=== PATIENT | male | born 1935 | race Caucasian/White ===

== ENCOUNTER 2019-08-07 13:11 | Inpatient (IN) | payer MEDICARE ==
[2019-08-07] MEDS ORDERED: Sodium Chloride 0.9% 10 ML Syringe FLUSH PRN (13:33)
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
[2019-08-07] MEDS: Hydrochlorothiazide 25 MG Tab PO SCH (15:10)
[2019-08-07] MEDS: Rivaroxaban 15 MG Tab PO SCH (17:30)
[2019-08-07] MEDS ORDERED: NIFEdipine 10 MG Cap PO SCH (20:00)
[2019-08-07] MEDS: cloNIDine 0.1 MG Tab PO SCH (20:32)
[2019-08-07] MEDS: Metoprolol Succinate 50 MG Tab.ER PO SCH (20:33)
[2019-08-07] MEDS: Latanoprost 0.005% Ophth Soln 2.5 ML Bottle EYEBOTH SCH (20:33)
[2019-08-07] MEDS: Simvastatin 20 MG Tab PO SCH (20:33)
[2019-08-07] MEDS: NIFEdipine 30 MG Tab.ER PO SCH (20:34)
[2019-08-07] MEDS ORDERED: Non-Formulary Medication 1 Each (Simvastatin [Zocor] 20 MG) PO SCH (21:00)
[2019-08-08] MEDS: Lisinopril 20 MG Tab PO SCH (08:49)
[2019-08-08] MEDS: NIFEdipine 30 MG Tab.ER PO SCH ×2 (08:50→19:55)
[2019-08-08] MEDS: Aspirin 81 MG Tab.Chew PO SCH (08:51)
[2019-08-08] MEDS: cloNIDine 0.1 MG Tab PO SCH ×2 (08:51→20:54)
[2019-08-08] MEDS: Metoprolol Succinate 50 MG Tab.ER PO SCH ×2 (08:52→20:57)
[2019-08-08] MEDS ORDERED: Non-Formulary Medication 1 Each (Lisinopril [Lisinopril] 20 MG) PO SCH (09:00)
--- NOTE | 2019-08-08 09:48 | CT ---
Head wo Cont CLINICAL HISTORY: Weakness, history of CVA COMPARISON: March 2019 TECHNIQUE: Transverse scans were obtained from the base of the skull through the vertex without IV contrast on a multislice, multidetector CT scanner. Auto dosage reduction and iterative reconstruction techniques employed. FINDINGS: There is a area of encephalomalacia involving the posterior right temporal lobe and the right occipital lobe. This is similar to the prior study.. There is no mass effect, hemorrhage, or extraaxial collection. The basal cisterns and sulci over the convexities are prominent. The ventricles are prominent. There is some periventricular and subcortical lucency IMPRESSION: Previous ischemic infarct in the right temporal and right occipital lobe Moderate age-related atrophy. Chronic ischemic microvascular changes
--- NOTE | 2019-08-08 13:04 | PCM.PN ---
- General Info Date of Service: 08/08/19 Subjective Update: The progress we made yesterday has reverted and now 24 hrs there was a CVA not a TIA. Functional Status: Reports: Pain Controlled - Review of Systems General: Reports: Weakness HEENT: Reports: No Symptoms Pulmonary: Reports: No Symptoms Cardiovascular: Reports: No Symptoms Gastrointestinal: Reports: No Symptoms Genitourinary: Reports: No Symptoms Musculoskeletal: Reports: Other (weakness right leg) Neurological: Reports: Trouble Speaking, Difficulty Walking, Weakness, Gait Disturbance Psychiatric: Reports: Other (continues dementia) - Patient Data Vitals - Most Recent: Last Vital Signs Temp 97.4 F 08/08/19 11:07 Pulse 66 08/08/19 11:07 Resp 16 08/08/19 11:07 BP 145/55 H 08/08/19 11:07 Pulse Ox 97 08/08/19 11:07 Weight - Most Recent: 172 lb I&O - Last 24 Hours: Intake & Output 08/07/19 08/08/19 08/08/19 22:59 06:59 14:59 Intake Total 50 250 540 Balance 50 250 540 Lab Results Last 24 Hours: Laboratory Results - last 24 hr 08/07/19 08/07/19 08/07/19 Range/Units 13:42 13:42 15:26 WBC 13.0 H (4.5-11.0) K/uL RBC 5.27 (4.30-5.90) M/uL Hgb 15.3 H D (12.0-15.0) g/dL Hct 47.2 (40.0-54.0) % MCV 90 (80-98) fL MCH 29 (27-31) pg MCHC 32 (32-36) % Plt Count 479 H (150-400) K/uL Sodium 141 (140-148) mmol/L Potassium 4.8 (3.6-5.2) mmol/L Chloride 106 (100-108) mmol/L Carbon Dioxide 26 (21-32) mmol/L Anion Gap 9.1 (5.0-14.0) mmol/L BUN 43 H (7-18) mg/dL Creatinine 1.9 H (0.8-1.3) mg/dL Est Cr Clr Drug Dosing 31.38 mL/min Estimated GFR (MDRD) 34 L (>60) Glucose 121 H (74-106) mg/dL Calcium 9.2 (8.5-10.1) mg/dL Troponin I < 0.017 (0.000-0.056) ng/mL Urine Color Yellow (YELLOW) Urine Appearance Clear (CLEAR) Urine pH 7.0 (5.0-8.0) Ur Specific [place] 1.025 (1.008-1.030) Urine Protein 100 H (NEGATIVE) mg/dL Urine Glucose (UA) Negative (NEGATIVE) mg/dL Urine Ketones Negative (NEGATIVE) mg/dL Urine Occult Blood Negative (NEGATIVE) Urine Nitrite Negative (NEGATIVE) Urine Bilirubin Negative (NEGATIVE) Urine Urobilinogen 0.2 (0.2-1.0) EU/dL Ur Leukocyte Esterase Negative (NEGATIVE) Urine RBC Not seen (0-5) Urine WBC Not seen (0-5) Ur Epithelial Cells Rare Amorphous Sediment Not seen Urine Bacteria Few Urine Mucus Not seen Med Orders - Current: Current Medications Aspirin (Aspirin) 81 mg PO DAILY [facility] Last Admin: 08/08/19 08:51 Dose: 81 mg Clonidine HCl (Catapres) 0.1 mg PO BID [facility] Last Admin: 08/08/19 08:51 Dose: 0.1 mg Hydrochlorothiazide (Hydrochlorothiazide) 25 mg PO Q48H [facility] Last Admin: 08/07/19 15:10 Dose: Not Given Latanoprost (Xalatan 0.005% Oph Soln) 0 ml EYEBOTH BEDTIME [facility] Last Admin: 08/07/19 20:33 Dose: 1 drop Lisinopril (Prinivil) 20 mg PO DAILY [facility] Last Admin: 08/08/19 08:49 Dose: 20 mg Metoprolol Succinate (Toprol Xl) 50 mg PO BID [facility] Last Admin: 08/08/19 08:52 Dose: 50 mg Nifedipine (Procardia Xl) 60 mg PO DAILY [facility] Last Admin: 08/08/19 08:50 Dose: 60 mg Nifedipine (Procardia Xl) 30 mg PO Q24H [facility] Last Admin: 08/07/19 20:34 Dose: 30 mg Rivaroxaban (Xarelto) 15 mg PO WITHDINNER [facility] Last Admin: 08/07/19 17:30 Dose: 15 mg Simvastatin (Zocor) 20 mg PO BEDTIME [facility] Last Admin: 08/07/19 20:33 Dose: 20 mg Sodium Chloride (Saline Flush) 10 ml FLUSH ASDIRECTED PRN PRN Reason: Keep Vein Open Last Admin: 08/07/19 13:42 Dose: 10 ml - Exam General: Oriented, Cooperative, Mild Distress HEENT: Pupils Equal, Pupils Reactive, EOMI Neck: Supple Lungs: Clear to Auscultation, Normal Respiratory Effort Cardiovascular: Regular Rate, Regular Rhythm GI/Abdominal Exam: Normal Bowel Sounds, Soft Extremities: Other (decreased movement right leg.) Peripheral Pulses: 1+: Radial (L), Radial (R) Skin: Warm, Dry, Intact Neurological: Cranial Nerves Intact (weakness right leg. The strength of hands equal) Sepsis Event Note - Evaluation Sepsis Screening Result: No Definite Risk - Focused Exam Vital Signs: Vital Signs Temp Pulse Pulse Resp BP BP Pulse Ox 08/08/19 11:07 97.4 F 66 16 145/55 H 97 08/08/19 08:52 67 174/58 H 08/08/19 08:51 174/58 H 08/08/19 08:50 174/58 H 08/08/19 08:49 174/58 H 08/08/19 07:00 98.2 F 67 18 174/58 H 94 L 08/08/19 03:00 97.4 F 81 16 186/67 H 95 Date Exam was Performed: 08/08/19 Time Exam was Performed: 12:59 - Problem List Review Problem List Initiated/Reviewed/Updated: Yes - My Orders Last 24 Hours: My Active Orders 08/07/19 14:56 Patient Status [ADT] Routine Oxygen Therapy [RC] PRN Up to Chair [RC] QID VTE/DVT Education [RC] Per Unit Routine Vital Signs [RC] Q4H Resuscitation Status Routine 08/07/19 14:58 Intake and Output [RC] QSHIFT 08/07/19 15:00 hydroCHLOROthiazide 25 mg PO Q48H 08/07/19 15:33 Consult to Physical Therapy [PT Evaluation and Treatment] [CONS] Routine OT Evaluation and Treatment [CONS] Routine 08/07/19 17:00 Rivaroxaban [Xarelto] 15 mg PO WITHDINNER 08/07/19 20:00 NIFEdipine [Procardia XL] 30 mg PO Q24H 08/07/19 21:00 Latanoprost [Xalatan 0.005% Ophth Soln] 0 ml EYEBOTH BEDTIME Metoprolol Succinate [Toprol XL] 50 mg PO BID Simvastatin [Zocor] 20 mg PO BEDTIME cloNIDine [Catapres] 0.1 mg PO BID 08/07/19 Dinner Regular Diet [DIET] 08/08/19 09:00 Aspirin 81 mg PO DAILY NIFEdipine [Procardia XL] 60 mg PO DAILY lisinopriL [Prinivil] 20 mg PO DAILY - Plan Plan:: Assessment/Plan: #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 #2. HTN: BP 145/55 #3. CKD: Creat 1.9 #4. HLD: Continue with Simvastatin. #5. History of Aortic aneurysm: Condition stable. #6. Amnesia/CVA residual: Chronic Will continue with PT as he kis unable to be discharged home as the CVA is progressing. The CT did not reveal a new infarct. We could do a MRI but would not change treatment. Will see if we get a response to PT in the next 24 hrs. Will start IV fluids as his intake of fluids have been poor.
[2019-08-08] MEDS ORDERED: Dextrose 5%-0.9% NaCl 1,000 ML IV SCH (13:15)
[2019-08-08] MEDS: Rivaroxaban 15 MG Tab PO SCH (17:53)
[2019-08-08] MEDS: Latanoprost 0.005% Ophth Soln 2.5 ML Bottle EYEBOTH SCH (20:58)
[2019-08-08] MEDS: Simvastatin 20 MG Tab PO SCH (20:59)
[2019-08-09] MEDS ORDERED: Lisinopril 20 MG Tab PO SCH (09:00)
[2019-08-09] MEDS: Aspirin 81 MG Tab.Chew PO SCH (09:37)
[2019-08-09] MEDS: cloNIDine 0.1 MG Tab PO SCH ×2 (09:39→21:29)
[2019-08-09] MEDS: Lisinopril 20 MG Tab PO SCH (09:39)
[2019-08-09] MEDS: NIFEdipine 30 MG Tab.ER PO SCH ×2 (09:40→21:26)
[2019-08-09] MEDS: Metoprolol Succinate 50 MG Tab.ER PO SCH ×2 (09:40→21:28)
--- NOTE | 2019-08-09 10:44 | PCM.PN ---
- General Info Date of Service: 08/09/19 Functional Status: Reports: Pain Controlled - Review of Systems General: Reports: Weakness HEENT: Reports: No Symptoms Pulmonary: Reports: No Symptoms Cardiovascular: Reports: No Symptoms Gastrointestinal: Reports: No Symptoms Genitourinary: Reports: No Symptoms Musculoskeletal: Reports: Other Skin: Reports: No Symptoms Neurological: Reports: Confusion, Difficulty Walking, Gait Disturbance Psychiatric: Reports: No Symptoms - Patient Data Vitals - Most Recent: Last Vital Signs Temp 97.7 F 08/09/19 07:09 Pulse 65 08/09/19 09:40 Resp 12 08/09/19 07:09 BP 190/60 H 08/09/19 09:40 Pulse Ox 96 08/09/19 07:09 Weight - Most Recent: 172 lb I&O - Last 24 Hours: Intake & Output 08/08/19 08/09/19 08/09/19 22:59 06:59 14:59 Intake Total 1654 Balance 1654 Med Orders - Current: Current Medications Aspirin (Aspirin) 81 mg PO DAILY [facility] Last Admin: 08/09/19 09:37 Dose: 81 mg Clonidine HCl (Catapres) 0.1 mg PO BID [facility] Last Admin: 08/09/19 09:39 Dose: 0.1 mg Hydrochlorothiazide (Hydrochlorothiazide) 25 mg PO Q48H [facility] Last Admin: 08/07/19 15:10 Dose: Not Given Latanoprost (Xalatan 0.005% [facility] Sol) 0 ml EYEBOTH BEDTIME [facility] Last Admin: 08/08/19 20:58 Dose: 1 drop Lisinopril (Prinivil) 40 mg PO DAILY [facility] Metoprolol Succinate (Toprol Xl) 50 mg PO BID [facility] Last Admin: 08/09/19 09:40 Dose: 50 mg Nifedipine (Procardia Xl) 60 mg PO DAILY [facility] Last Admin: 08/09/19 09:40 Dose: 60 mg Nifedipine (Procardia Xl) 30 mg PO Q24H [facility] Last Admin: 08/08/19 19:55 Dose: 30 mg Rivaroxaban (Xarelto) 15 mg PO WITHDINNER [facility] Last Admin: 08/08/19 17:53 Dose: 15 mg Simvastatin (Zocor) 20 mg PO BEDTIME [facility] Last Admin: 08/08/19 20:59 Dose: 20 mg Sodium Chloride (Saline Flush) 10 ml FLUSH ASDIRECTED PRN PRN Reason: Keep Vein Open Last Admin: 08/07/19 13:42 Dose: 10 ml Discontinued Medications Dextrose/Sodium Chloride (Dextrose 5%-Normal Saline) 1,000 mls @ 125 mls/hr IV ASDIRECTED [facility] Last Admin: 08/08/19 14:01 Dose: 125 mls/hr Lisinopril (Prinivil) 20 mg PO DAILY [facility] Last Admin: 08/09/19 09:39 Dose: 20 mg - Exam General: Cooperative, Mild Distress HEENT: Pupils Equal, Pupils Reactive, EOMI, Mucous Membr. Moist/[place] Neck: Supple Lungs: Clear to Auscultation, Normal Respiratory Effort Cardiovascular: Regular Rate, Regular Rhythm GI/Abdominal Exam: Normal Bowel Sounds, Soft, Non-Tender, No Organomegaly, No Distention, No Abnormal Bruit, No Mass, Pelvis Stable Back Exam: Normal Inspection, Full Range of Motion Extremities: Other (Decreased strength right side forgeting right arm to movement. Weakness right leg and right hand.) Peripheral Pulses: 1+: Radial (L), Radial (R) Skin: Warm, Dry, Intact Psy/Mental Status: Labile Mood Sepsis Event Note - Evaluation Sepsis Screening Result: No Definite Risk - Focused Exam Vital Signs: Vital Signs Temp Pulse Pulse Resp BP BP BP 08/09/19 09:40 65 190/60 H 08/09/19 09:39 190/60 H 190/60 H 08/09/19 07:09 97.7 F 65 12 208/62 H 08/09/19 03:27 97.6 F 76 16 183/106 H 08/08/19 23:57 97.7 F 75 16 167/57 H Pulse Ox 08/09/19 09:40 08/09/19 09:39 08/09/19 07:09 96 08/09/19 03:27 98 08/08/19 23:57 95 Date Exam was Performed: 08/09/19 Time Exam was Performed: 10:34 - Problem List Review Problem List Initiated/Reviewed/Updated: Yes - My Orders Last 24 Hours: My Active Orders 08/08/19 18:10 Discontinue Saline Lock [Peripheral IV Discontinue] [OM.PC] Routine 08/09/19 09:00 lisinopriL [Prinivil] 40 mg PO DAILY - Plan Plan:: Assessment/Plan: #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 Will continue with intensive PT to improve safety of ambulation. Is not safe to be discharged home at the present. His is not able to take care of him in his present physical state. If not improved will be going to the Monday and this is Monday. #2. HTN: BP elevation of blood pressure to 208/62. Have increased Lisinopril and will further change medication as needed before discharge to the [place]. #3. CKD: Creat 1.9 #4. HLD: Continue with Simvastatin. #5. History of Aortic aneurysm: Condition stable. #6. Amnesia/CVA residual: Chronic Will continue with PT as he is unable to be discharged home as the CVA is confirmed. The CT did not reveal a new infarct. We could do a MRI but would not change treatment. His fluid intake is stable and his IV infiltrated yesterday so was not restarted.
[2019-08-09] MEDS ORDERED: Lisinopril 20 MG Tab PO ONE (11:15)
[2019-08-09] MEDS: Hydrochlorothiazide 25 MG Tab PO SCH (16:05)
[2019-08-09] MEDS: Rivaroxaban 15 MG Tab PO SCH (16:06)
[2019-08-09] MEDS: Simvastatin 20 MG Tab PO SCH (21:28)
[2019-08-09] MEDS: Latanoprost 0.005% Ophth Soln 2.5 ML Bottle EYEBOTH SCH (21:29)
--- NOTE | 2019-08-10 08:50 | PCM.PN ---
- General Info Date of Service: 08/10/19 Functional Status: Reports: Pain Controlled - Review of Systems General: Reports: No Symptoms HEENT: Reports: No Symptoms Pulmonary: Reports: No Symptoms Cardiovascular: Reports: No Symptoms Gastrointestinal: Reports: No Symptoms Genitourinary: Reports: No Symptoms Musculoskeletal: Reports: No Symptoms Skin: Reports: No Symptoms Neurological: Reports: No Symptoms Psychiatric: Reports: Other (Dementia) - Patient Data Vitals - Most Recent: Last Vital Signs Temp 97.6 F 08/10/19 08:07 Pulse 68 08/10/19 08:07 Resp 12 08/10/19 08:07 BP 204/65 H 08/10/19 08:07 Pulse Ox 94 L 08/10/19 08:07 Weight - Most Recent: 172 lb I&O - Last 24 Hours: Intake & Output 08/09/19 08/10/19 08/10/19 22:59 06:59 14:59 Intake Total 240 Output Total 125 250 Balance 115 -250 Med Orders - Current: Current Medications Aspirin (Aspirin) 81 mg PO DAILY [facility] Last Admin: 08/09/19 09:37 Dose: 81 mg Clonidine HCl (Catapres) 0.1 mg PO BID [facility] Last Admin: 08/09/19 21:29 Dose: 0.1 mg Hydrochlorothiazide (Hydrochlorothiazide) 25 mg PO Q48H [facility] Last Admin: 08/09/19 16:05 Dose: Not Given Latanoprost (Xalatan 0.005% [facility] Soln) 0 ml EYEBOTH BEDTIME [facility] Last Admin: 08/09/19 21:29 Dose: 1 drop Lisinopril (Prinivil) 40 mg PO DAILY [facility] Metoprolol Succinate (Toprol Xl) 50 mg PO BID [facility] Last Admin: 08/09/19 21:28 Dose: 50 mg Nifedipine (Procardia Xl) 60 mg PO DAILY [facility] Last Admin: 08/09/19 09:40 Dose: 60 mg Nifedipine (Procardia Xl) 30 mg PO Q24H [facility] Last Admin: 08/09/19 21:26 Dose: 30 mg Rivaroxaban (Xarelto) 15 mg PO WITHDINNER [facility] Last Admin: 08/09/19 16:06 Dose: 15 mg Simvastatin (Zocor) 20 mg PO BEDTIME [facility] Last Admin: 08/09/19 21:28 Dose: 20 mg Sodium Chloride (Saline Flush) 10 ml FLUSH ASDIRECTED PRN PRN Reason: Keep Vein Open Last Admin: 08/07/19 13:42 Dose: 10 ml Discontinued Medications Dextrose/Sodium Chloride (Dextrose 5%-Normal Saline) 1,000 mls @ 125 mls/hr IV ASDIRECTED [facility] Last Admin: 08/08/19 14:01 Dose: 125 mls/hr Lisinopril (Prinivil) 20 mg PO DAILY [facility] Last Admin: 08/09/19 09:39 Dose: 20 mg Lisinopril (Prinivil) 40 mg PO DAILY [facility] Lisinopril (Prinivil) 20 mg PO ONETIME ONE Stop: 08/09/19 11:16 Last Admin: 08/09/19 11:35 Dose: 20 mg - Exam General: Cooperative, Mild Distress HEENT: Pupils Equal, Pupils Reactive, EOMI, Mucous Membr. Moist/[place] Neck: Supple Lungs: Clear to Auscultation, Normal Respiratory Effort Cardiovascular: Regular Rate, Regular Rhythm GI/Abdominal Exam: Normal Bowel Sounds, Soft, Non-Tender, No Organomegaly, No Distention, No Abnormal Bruit, No Mass, Pelvis Stable Back Exam: Normal Inspection, Full Range of Motion Extremities: Normal Inspection, Normal Range of Motion, Non-Tender, No Pedal Edema, Normal Capillary Refill Peripheral Pulses: 1+: Radial (L), Radial (R) Skin: Warm, Dry, Intact Neurological: No New Focal Deficit Psy/Mental Status: Normal Affect Sepsis Event Note - Evaluation Sepsis Screening Result: No Definite Risk - Focused Exam Vital Signs: Vital Signs Temp Pulse Pulse Resp BP BP Pulse Ox 08/10/19 08:07 97.6 F 68 12 204/65 H 94 L 08/10/19 02:44 97.7 F 73 14 158/59 H 93 L 08/09/19 22:43 97.3 F 77 16 189/66 H 94 L 08/09/19 21:29 152/64 H 08/09/19 21:28 77 152/64 H 08/09/19 21:26 152/74 H Date Exam was Performed: 08/10/19 Time Exam was Performed: 08:45 - Problem List Review Problem List Initiated/Reviewed/Updated: Yes - My Orders Last 24 Hours: My Active Orders 08/09/19 14:14 SCD [Sequential Compression Device] [OM.PC] Routine 08/10/19 09:00 lisinopriL [Prinivil] 40 mg PO DAILY 08/11/19 05:11 CBC WITH AUTO DIFF [HEME] Routine COMPREHENSIVE METABOLIC PN,CMP [CHEM] Routine - Plan Plan:: Assessment/Plan: #1. CVA: He is using his right hand to eat with whick is improved from yesterday. Will continue with intensive PT to improve safety of ambulation as he is still not safe walking alone and must have help. Is not safe to be discharged home at the present. His is not able to take care of him in his present physical state. If not improved will be going to the Monday and this is Monday. #2. HTN: BP elevation of blood pressure to 204/64. Have increased Lisinopril yesterday. Will increase clonidine as he was taking at home. #3. CKD: Creat 1.9 #4. HLD: Continue with Simvastatin. #5. History of Aortic aneurysm: Condition stable. #6. Amnesia/CVA residual: Chronic Will continue with PT as he is unable to be discharged home as the CVA is confirmed. The CT did not reveal a new infarct. We could do a MRI but would not change treatment. His fluid intake is stable.
[2019-08-10] MEDS: Aspirin 81 MG Tab.Chew PO SCH (09:55)
[2019-08-10] MEDS: Metoprolol Succinate 50 MG Tab.ER PO SCH ×2 (09:58→20:37)
[2019-08-10] MEDS: cloNIDine 0.1 MG Tab PO SCH ×3 (09:59→21:11)
[2019-08-10] MEDS: Lisinopril 20 MG Tab PO SCH (09:59)
[2019-08-10] MEDS ORDERED: Hydrochlorothiazide 25 MG Tab PO SCH (10:00)
[2019-08-10] MEDS: NIFEdipine 30 MG Tab.ER PO SCH ×2 (10:00→20:35)
[2019-08-10] MEDS ORDERED: Magnesium Hydroxide 400 MG/5 ML Susp 30 ML Cup PO PRN (11:10)
[2019-08-10] MEDS: Polyethylene Glycol 3350 Powder 17 GM Packet PO PRN (14:02)
[2019-08-10] MEDS: Rivaroxaban 15 MG Tab PO SCH (16:32)
[2019-08-10] MEDS: Simvastatin 20 MG Tab PO SCH (20:38)
[2019-08-10] MEDS: Latanoprost 0.005% Ophth Soln 2.5 ML Bottle EYEBOTH SCH (20:38)
[2019-08-11] MEDS: cloNIDine 0.1 MG Tab PO SCH ×3 (03:53→20:57)
[2019-08-11] MEDS: Polyethylene Glycol 3350 Powder 17 GM Packet PO PRN (08:15)
--- NOTE | 2019-08-11 12:01 | PCM.PN ---
- General Info Date of Service: 08/11/19 Subjective Update: Unable to weak up this morning. He is resting in bed. Functional Status: Reports: Pain Controlled - Review of Systems Pulmonary: Reports: No Symptoms Cardiovascular: Reports: No Symptoms Genitourinary: Reports: No Symptoms Musculoskeletal: Reports: No Symptoms Neurological: Reports: Weakness - Patient Data Vitals - Most Recent: Last Vital Signs Temp 96.8 F L 08/11/19 11:35 Pulse 50 L 08/11/19 11:35 Resp 16 08/11/19 11:35 BP 149/44 H 08/11/19 11:35 Pulse Ox 99 08/11/19 11:35 Weight - Most Recent: 172 lb I&O - Last 24 Hours: Intake & Output 08/10/19 08/11/19 08/11/19 22:59 06:59 14:59 Intake Total 960 200 300 Output Total 125 Balance 835 200 300 Lab Results Last 24 Hours: Laboratory Results - last 24 hr 08/11/19 08/11/19 Range/Units 04:00 04:00 WBC 12.4 H (4.5-11.0) K/uL RBC 4.55 (4.30-5.90) M/uL Hgb 13.0 D (12.0-15.0) g/dL Hct 41.8 (40.0-54.0) % MCV 92 (80-98) fL MCH 29 (27-31) pg MCHC 31 L (32-36) % Plt Count 432 H (150-400) K/uL Neut % (Auto) 60 (36-66) % Lymph % (Auto) 20 L (24-44) % [place] % (Auto) 13 H (2-6) % Eos % (Auto) 6 H (2-4) % Baso % (Auto) 1 (0-1) % Sodium 142 (140-148) mmol/L Potassium 4.4 (3.6-5.2) mmol/L Chloride 108 (100-108) mmol/L Carbon Dioxide 27 (21-32) mmol/L Anion Gap 6.7 (5.0-14.0) mmol/L BUN 46 H (7-18) mg/dL Creatinine 2.1 H (0.8-1.3) mg/dL Est Cr Clr Drug Dosing 28.39 mL/min Estimated GFR (MDRD) 30 L (>60) Glucose 139 H (74-106) mg/dL Calcium 8.7 (8.5-10.1) mg/dL Total Bilirubin 0.3 (0.2-1.0) mg/dL AST 15 (15-37) U/L ALT 29 (12-78) U/L Alkaline Phosphatase 67 (46-116) U/L Total Protein 6.0 L (6.4-8.2) g/dL Albumin 2.9 L (3.4-5.0) g/dL Globulin 3.1 (2.3-3.5) g/dL Albumin/Globulin Ratio 0.9 L (1.2-2.2) Med Orders - Current: Current Medications Aspirin (Aspirin) 81 mg PO DAILY [facility] Last Admin: 08/10/19 09:55 Dose: 81 mg Clonidine HCl (Catapres) 0.1 mg PO BID [facility] Hydrochlorothiazide (Hydrochlorothiazide) 25 mg PO Q48H [facility] Last Admin: 08/10/19 10:01 Dose: 25 mg Latanoprost (Xalatan 0.005% [facility]n) 0 ml EYEBOTH BEDTIME [facility] Last Admin: 08/10/19 20:38 Dose: 1 drop Lisinopril (Prinivil) 40 mg PO DAILY [facility] Last Admin: 08/10/19 09:59 Dose: 40 mg Magnesium Hydroxide (Milk Of Magnesia) 30 ml PO BID PRN PRN Reason: Constipation Last Admin: 08/10/19 17:19 Dose: 30 ml Metoprolol Succinate (Toprol Xl) 50 mg PO BID [facility] Last Admin: 08/10/19 20:37 Dose: 50 mg Nifedipine (Procardia Xl) 60 mg PO DAILY [facility] Last Admin: 08/10/19 10:00 Dose: 60 mg Nifedipine (Procardia Xl) 30 mg PO Q24H [facility] Last Admin: 08/10/19 20:35 Dose: 30 mg Polyethylene Glycol (Miralax) 17 gm PO BID PRN PRN Reason: Constipation Last Admin: 08/11/19 08:15 Dose: 17 gm Rivaroxaban (Xarelto) 15 mg PO WITHDINNER [facility] Last Admin: 08/10/19 16:32 Dose: 15 mg Simvastatin (Zocor) 20 mg PO BEDTIME [facility] Last Admin: 08/10/19 20:38 Dose: 20 mg Sodium Chloride (Saline Flush) 10 ml FLUSH ASDIRECTED PRN PRN Reason: Keep Vein Open Last Admin: 08/07/19 13:42 Dose: 10 ml Discontinued Medications Clonidine HCl (Catapres) 0.1 mg PO BID [facility] Last Admin: 08/09/19 21:29 Dose: 0.1 mg Clonidine HCl (Catapres) 0.2 mg PO Q6H [facility] Last Admin: 08/11/19 03:53 Dose: 0.2 mg Hydrochlorothiazide (Hydrochlorothiazide) 25 mg PO Q48H [facility] Last Admin: 08/09/19 16:05 Dose: Not Given Dextrose/Sodium Chloride (Dextrose 5%-Normal Saline) 1,000 mls @ 125 mls/hr IV ASDIRECTED [facility] Last Admin: 08/08/19 14:01 Dose: 125 mls/hr Lisinopril (Prinivil) 20 mg PO DAILY [facility] Last Admin: 08/09/19 09:39 Dose: 20 mg Lisinopril (Prinivil) 40 mg PO DAILY [facility] Lisinopril (Prinivil) 20 mg PO ONETIME ONE Stop: 08/09/19 11:16 Last Admin: 08/09/19 11:35 Dose: 20 mg - Exam General: Sedated HEENT: Pupils Equal, Pupils Reactive Neck: Supple Lungs: Clear to Auscultation, Normal Respiratory Effort Cardiovascular: Regular Rate GI/Abdominal Exam: Normal Bowel Sounds, Soft Extremities: Normal Inspection Peripheral Pulses: 1+: Radial (L), Radial (R) Skin: Warm, Dry, Intact Neurological: Reflexes Equal Bilateral Psy/Mental Status: Other (Unable to wake up.) Sepsis Event Note - Evaluation Sepsis Screening Result: No Definite Risk - Focused Exam Vital Signs: Vital Signs Temp Pulse Resp BP BP Pulse Ox 08/11/19 11:35 96.8 F L 50 L 16 149/44 H 99 08/11/19 09:39 54 L 107/47 L 08/11/19 07:32 97.4 F 61 16 155/58 H 92 L 08/11/19 03:53 133/53 L 08/11/19 03:52 98.2 F 64 16 133/53 L 98 Date Exam was Performed: 08/11/19 Time Exam was Performed: 11:54 - Problem List Review Problem List Initiated/Reviewed/Updated: Yes - My Orders Last 24 Hours: My Active Orders 08/10/19 11:08 polyethylene glycoL 3350 [MiraLAX] 17 gm PO BID PRN 08/10/19 11:10 Magnesium Hydroxide [Milk of Magnesia] 30 ml PO BID PRN 08/11/19 21:00 cloNIDine [Catapres] 0.1 mg PO BID - Plan Plan:: Assessment/Plan: #1. CVA: Unable to wake up this morning. Will reduce the clonidine to bid 0.1 mg. Will continue with intensive PTas possible when he wakes up. His is not able to take care of him in his present physical state. If not improved will be going to the tomorrow. Will be going on hospice. #2. HTN: Blood pressure is down and he is lethargic. Have decreased the clonidine. #3. CKD: Creat 1.9 #4. HLD: Continue with Simvastatin. #5. History of Aortic aneurysm: Condition stable. #6. Amnesia/CVA residual: Chronic Will continue with PT as he is unable to be discharged home as the CVA is confirmed. The CT did not reveal a new infarct. We could do a MRI but would not change treatment. His fluid intake is stable.
[2019-08-11] MEDS: NIFEdipine 30 MG Tab.ER PO SCH ×2 (14:02→20:57)
[2019-08-11] MEDS: Aspirin 81 MG Tab.Chew PO SCH (14:02)
[2019-08-11] MEDS: Lisinopril 20 MG Tab PO SCH (14:02)
[2019-08-11] MEDS: Metoprolol Succinate 50 MG Tab.ER PO SCH (14:02)
[2019-08-12] MEDS: cloNIDine 0.1 MG Tab PO SCH (09:03)
--- NOTE | 2019-08-12 18:35 | PCM.PN ---
- General Info Date of Service: 08/12/19 Functional Status: Reports: Pain Controlled - Review of Systems General: Reports: Weakness HEENT: Reports: No Symptoms Pulmonary: Reports: No Symptoms Cardiovascular: Reports: No Symptoms Gastrointestinal: Reports: No Symptoms Genitourinary: Reports: No Symptoms Musculoskeletal: Reports: No Symptoms Skin: Reports: No Symptoms Neurological: Reports: Difficulty Walking, Weakness, Gait Disturbance Psychiatric: Reports: Other (dementia) - Patient Data Vitals - Most Recent: Last Vital Signs Temp 97.9 F 08/12/19 14:22 Pulse 80 08/12/19 14:22 Resp 18 08/12/19 14:22 BP 181/62 H 08/12/19 14:22 Pulse Ox 94 L 08/12/19 14:22 Weight - Most Recent: 172 lb I&O - Last 24 Hours: Intake & Output 08/12/19 08/12/19 08/12/19 06:59 14:59 22:59 Intake Total 545 Balance 545 Med Orders - Current: Current Medications Clonidine HCl (Catapres) 0.1 mg PO BID [facility] Last Admin: 08/12/19 09:03 Dose: 0.1 mg Magnesium Hydroxide (Milk Of Magnesia) 30 ml PO BID PRN PRN Reason: Constipation Last Admin: 08/10/19 17:19 Dose: 30 ml Nifedipine (Procardia Xl) 30 mg PO Q24H [facility] Last Admin: 08/11/19 20:57 Dose: 30 mg Polyethylene Glycol (Miralax) 17 gm PO BID PRN PRN Reason: Constipation Last Admin: 08/11/19 08:15 Dose: 17 gm Discontinued Medications Aspirin (Aspirin) 81 mg PO DAILY [facility] Last Admin: 08/11/19 14:02 Dose: Not Given Clonidine HCl (Catapres) 0.1 mg PO BID [facility] Last Admin: 08/09/19 21:29 Dose: 0.1 mg Clonidine HCl (Catapres) 0.2 mg PO Q6H [facility] Last Admin: 08/11/19 14:03 Dose: Not Given Hydrochlorothiazide (Hydrochlorothiazide) 25 mg PO Q48H [facility] Last Admin: 08/09/19 16:05 Dose: Not Given Hydrochlorothiazide (Hydrochlorothiazide) 25 mg PO Q48H [facility] Last Admin: 08/10/19 10:01 Dose: 25 mg Dextrose/Sodium Chloride (Dextrose 5%-Normal Saline) 1,000 mls @ 125 mls/hr IV ASDIRECTED [facility] Last Admin: 08/08/19 14:01 Dose: 125 mls/hr Latanoprost (Xalatan 0.005% [facility] Soln) 0 ml EYEBOTH BEDTIME [facility] Last Admin: 08/10/19 20:38 Dose: 1 drop Lisinopril (Prinivil) 20 mg PO DAILY [facility] Last Admin: 08/09/19 09:39 Dose: 20 mg Lisinopril (Prinivil) 40 mg PO DAILY [facility] Lisinopril (Prinivil) 20 mg PO ONETIME ONE Stop: 08/09/19 11:16 Last Admin: 08/09/19 11:35 Dose: 20 mg Lisinopril (Prinivil) 40 mg PO DAILY [facility] Last Admin: 08/11/19 14:02 Dose: Not Given Metoprolol Succinate (Toprol Xl) 50 mg PO BID [facility] Last Admin: 08/11/19 14:02 Dose: Not Given Nifedipine (Procardia Xl) 60 mg PO DAILY [facility] Last Admin: 08/11/19 14:02 Dose: Not Given Rivaroxaban (Xarelto) 15 mg PO WITHDINNER [facility] Last Admin: 08/10/19 16:32 Dose: 15 mg Simvastatin (Zocor) 20 mg PO BEDTIME [facility] Last Admin: 08/10/19 20:38 Dose: 20 mg Sodium Chloride (Saline Flush) 10 ml FLUSH ASDIRECTED PRN PRN Reason: Keep Vein Open Last Admin: 08/07/19 13:42 Dose: 10 ml - Exam General: Cooperative, Mild Distress HEENT: Pupils Equal, Pupils Reactive, EOMI, Mucous Membr. Moist/[place] Neck: Supple Lungs: Clear to Auscultation, Normal Respiratory Effort Cardiovascular: Regular Rate, Regular Rhythm GI/Abdominal Exam: Normal Bowel Sounds, Soft, Non-Tender, No Organomegaly, No Distention, No Abnormal Bruit, No Mass, Pelvis Stable Peripheral Pulses: 1+: Radial (L), Radial (R) Skin: Warm, Dry, Intact Sepsis Event Note - Evaluation Sepsis Screening Result: No Definite Risk - Focused Exam Vital Signs: Vital Signs Temp Pulse Resp BP BP Pulse Ox 08/12/19 14:22 97.9 F 80 18 181/62 H 94 L 08/12/19 11:00 96.4 F L 79 18 180/70 H 95 08/12/19 09:03 173/64 H 08/12/19 07:00 96.4 F L 89 18 173/64 H 93 L Date Exam was Performed: 08/12/19 Time Exam was Performed: 18:29 - Problem List Review Problem List Initiated/Reviewed/Updated: Yes - My Orders Last 24 Hours: My Active Orders 08/11/19 21:00 cloNIDine [Catapres] 0.1 mg PO BID - Plan Plan:: Assessment/Plan: #1. CVA: Able to walk with assistance of 2 only. His is not able to take care of him in his present physical state without help and family and they are here to assist her. Will be going home on hospice. #2. HTN: Blood pressure up as medicine was held. #3. CKD: Creat 1.9 #4. HLD: Stopped all meds. #5. History of Aortic aneurysm: Condition stable. #6. Amnesia/CVA residual: Chronic
[2019-08-13 10:25] VITALS: BP 193/65; PULSE 86
--- NOTE | 2019-08-13 13:08 | PCM.PN ---
- General Info Date of Service: 08/13/19 Subjective Update: Bar is lethargic this morning. He didn't have breakfast but now he is lethargic. His is there at the time of the evaluation. Functional Status: Reports: Pain Controlled - Review of Systems General: Reports: No Symptoms, Weakness, Fatigue HEENT: Reports: No Symptoms Pulmonary: Reports: No Symptoms Cardiovascular: Reports: No Symptoms Gastrointestinal: Reports: No Symptoms Genitourinary: Reports: No Symptoms Musculoskeletal: Reports: No Symptoms Skin: Reports: No Symptoms Neurological: Reports: Trouble Speaking, Weakness Psychiatric: Reports: Other (lethargic) - Patient Data Vitals - Most Recent: Last Vital Signs Temp 97.6 F 08/13/19 10:19 Pulse 86 08/13/19 10:19 Resp 18 08/13/19 10:19 BP 193/65 H 08/13/19 10:19 Pulse Ox 96 08/13/19 10:19 Weight - Most Recent: 172 lb I&O - Last 24 Hours: Intake & Output 08/12/19 08/13/19 08/13/19 22:59 06:59 14:59 Intake Total 100 160 300 Balance 100 160 300 Med Orders - Current: Current Medications Magnesium Hydroxide (Milk Of Magnesia) 30 ml PO BID PRN PRN Reason: Constipation Last Admin: 08/10/19 17:19 Dose: 30 ml Polyethylene Glycol (Miralax) 17 gm PO BID PRN PRN Reason: Constipation Last Admin: 08/11/19 08:15 Dose: 17 gm Discontinued Medications Aspirin (Aspirin) 81 mg PO DAILY [facility] Last Admin: 08/11/19 14:02 Dose: Not Given Clonidine HCl (Catapres) 0.1 mg PO BID [facility] Last Admin: 08/09/19 21:29 Dose: 0.1 mg Clonidine HCl (Catapres) 0.2 mg PO Q6H [facility] Last Admin: 08/11/19 14:03 Dose: Not Given Clonidine HCl (Catapres) 0.1 mg PO BID [facility] Last Admin: 08/12/19 09:03 Dose: 0.1 mg Hydrochlorothiazide (Hydrochlorothiazide) 25 mg PO Q48H [facility] Last Admin: 08/09/19 16:05 Dose: Not Given Hydrochlorothiazide (Hydrochlorothiazide) 25 mg PO Q48H [facility] Last Admin: 03/14/20 10:01 Dose: 25 mg Dextrose/Sodium Chloride (Dextrose 5%-Normal Saline) 1,000 mls @ 125 mls/hr IV ASDIRECTED [facility] Last Admin: 08/08/19 14:01 Dose: 125 mls/hr Latanoprost (Xalatan 0.005% Ophth Soln) 0 ml EYEBOTH BEDTIME [facility] Last Admin: 08/10/19 20:38 Dose: 1 drop Lisinopril (Prinivil) 20 mg PO DAILY [facility] Last Admin: 08/09/19 09:39 Dose: 20 mg Lisinopril (Prinivil) 40 mg PO DAILY [facility] Lisinopril (Prinivil) 20 mg PO ONETIME ONE Stop: 08/09/19 11:16 Last Admin: 08/09/19 11:35 Dose: 20 mg Lisinopril (Prinivil) 40 mg PO DAILY [facility] Last Admin: 08/11/19 14:02 Dose: Not Given Metoprolol Succinate (Toprol Xl) 50 mg PO BID [facility] Last Admin: 08/11/19 14:02 Dose: Not Given Nifedipine (Procardia Xl) 60 mg PO DAILY [facility] Last Admin: 08/11/19 14:02 Dose: Not Given Nifedipine (Procardia Xl) 30 mg PO Q24H [facility] Last Admin: 08/11/19 20:57 Dose: 30 mg Rivaroxaban (Xarelto) 15 mg PO WITHDINNER [facility] Last Admin: 08/10/19 16:32 Dose: 15 mg Simvastatin (Zocor) 20 mg PO BEDTIME [facility] Last Admin: 08/10/19 20:38 Dose: 20 mg Sodium Chloride (Saline Flush) 10 ml FLUSH ASDIRECTED PRN PRN Reason: Keep Vein Open Last Admin: 08/07/19 13:42 Dose: 10 ml - Exam General: Mild Distress Neck: Supple Lungs: Clear to Auscultation, Normal Respiratory Effort Cardiovascular: Regular Rate, Regular Rhythm GI/Abdominal Exam: Soft Extremities: Normal Inspection, Normal Range of Motion, Non-Tender, No Pedal Edema, Normal Capillary Refill Peripheral Pulses: 1+: Radial (L), Radial (R) Skin: Warm, Dry, Intact Neurological: No New Focal Deficit Psy/Mental Status: Other (lethargic) Sepsis Event Note - Evaluation Sepsis Screening Result: No Definite Risk - Focused Exam Vital Signs: Vital Signs Temp Pulse Resp BP Pulse Ox 08/13/19 10:19 97.6 F 86 18 193/65 H 96 08/13/19 09:02 97.6 F 85 18 201/59 H 96 08/13/19 07:00 97.6 F 105 H 18 196/61 H 96 08/13/19 03:46 97.3 F 81 18 203/69 H 94 L Date Exam was Performed: 08/13/19 Time Exam was Performed: 13:02 - Problem List Review Problem List Initiated/Reviewed/Updated: Yes - My Orders Last 24 Hours: My Active Orders 08/13/19 10:00 Ready for Discharge [RC] PER UNIT ROUTINE - Plan Plan:: Assessment/Plan: #1. CVA: Able to walk with assistance of 2 yesterday. Today he is more lethargic. His is not able to take care of him in his present physical state without help and family and they are here to assist her. Will be going home on hospice today. #2. HTN: Blood pressure up as medicine was held. #3. CKD: Creat 1.9 #4. HLD: Stopped all meds. #5. History of Aortic aneurysm: Condition stable. #6. Amnesia/CVA residual: Chronic He'll be going home this afternoon on hospice care.
--- NOTE | 2019-08-13 13:13 | PCM.DCSUM1 ---
Discharge Summary - Hospital Course Brief History: Bar has had a cerebrovascular accident in the past about 2 years ago and has had several small strokes since that time. He came in with another episode of severe weakness, unable to move his right arm or leg. This partially cleared, but not entirely so was admitted. Diagnosis: Stroke: Yes Modified [place] Scale: Mod.Sev.Disability ;Unable to Walk/Attend Bodily Needs W/ O Assistance Modified [place] Scale Score: 4 - Discharge Data Discharge Date: 08/13/19 Discharge Disposition: Home, Self-Care 01 Condition: Poor - Referral to Home Health Primary Care Physician: Kenyon Sagastume Sr, MD - Patient Summary/Data Consults: Consultations 08/07/19 15:33 Consult to Physical Therapy [PT Evaluation and Treatment] [CONS] Routine Please Evaluate and Treat. PT Reason for Consult: Strengthening Pending Discharge: Yes Special Instructions: Home with HC vs NHP This query below is only for informational purposes and is not editable. Admission Diagnosis/Problem: CVA, Cerebrovascular accident OT Evaluation and Treatment [CONS] Routine Please Evaluate and Treat. OT Reason for Consult: Strengthening Pending Discharge: Yes Special Instructions: home with HC vs NHP This query below is only for informational purposes and is not editable. Admission Diagnosis/Problem: CVA, Cerebrovascular accident Hospital Course: After admission to the hospital his blood pressure would go down and he would become increasing lethargic. He is unable to go home without help, so the family has, and he'll be going home. CT of the head did not show any acute pathology, but certainly there has been another cerebrovascular accident. - Patient Instructions Diet: Heart Healthy Diet Activity: As Tolerated - Discharge Plan *PRESCRIPTION DRUG MONITORING PROGRAM REVIEWED*: No *COPY OF PRESCRIPTION DRUG MONITORING REPORT IN PATIENT EUGENIA: No Referrals: Kenyon Sagastume Sr, MD [Primary Care Provider] - - Discharge Summary/Plan Comment DC Time >30 min.: Yes Discharge Summary/Plan Comment: Assessment/Plan: #1. CVA: Able to walk with assistance of 2 yesterday. Today he is more lethargic. His is not able to take care of him in his present physical state without help and family and they are here to assist her. Will be going home on hospice today. #2. HTN: Blood pressure up as medicine was held. #3. CKD: Creat 1.9 #4. HLD: Stopped all meds. #5. History of Aortic aneurysm: Condition stable. #6. Amnesia/CVA residual: Chronic He'll be going home this afternoon on hospice care. - General Info Date of Service: 08/13/19 Functional Status: Reports: Pain Controlled - Review of Systems General: Reports: Weakness HEENT: Reports: No Symptoms Pulmonary: Reports: No Symptoms Cardiovascular: Reports: No Symptoms Gastrointestinal: Reports: No Symptoms Genitourinary: Reports: No Symptoms Musculoskeletal: Reports: No Symptoms Skin: Reports: No Symptoms Neurological: Reports: Difficulty Walking, Gait Disturbance, Other (right-sided weakness) Psychiatric: Reports: Depression - Patient Data Vitals - Most Recent: Last Vital Signs Temp 97.6 F 08/13/19 10:19 Pulse 86 08/13/19 10:19 Resp 18 08/13/19 10:19 BP 193/65 H 08/13/19 10:19 Pulse Ox 96 08/13/19 10:19 Weight - Most Recent: 172 lb I&O - Last 24 hours: Intake & Output 08/12/19 08/13/19 08/13/19 22:59 06:59 14:59 Intake Total 100 160 300 Balance 100 160 300 Med Orders - Current: Current Medications Magnesium Hydroxide (Milk Of Magnesia) 30 ml PO BID PRN PRN Reason: Constipation Last Admin: 08/10/19 17:19 Dose: 30 ml Polyethylene Glycol (Miralax) 17 gm PO BID PRN PRN Reason: Constipation Last Admin: 08/11/19 08:15 Dose: 17 gm Discontinued Medications Aspirin (Aspirin) 81 mg PO DAILY [facility] Last Admin: 08/11/19 14:02 Dose: Not Given Clonidine HCl (Catapres) 0.1 mg PO BID [facility] Last Admin: 08/09/19 21:29 Dose: 0.1 mg Clonidine HCl (Catapres) 0.2 mg PO Q6H [facility] Last Admin: 08/11/19 14:03 Dose: Not Given Clonidine HCl (Catapres) 0.1 mg PO BID [facility] Last Admin: 08/12/19 09:03 Dose: 0.1 mg Hydrochlorothiazide (Hydrochlorothiazide) 25 mg PO Q48H [facility] Last Admin: 08/09/19 16:05 Dose: Not Given Hydrochlorothiazide (Hydrochlorothiazide) 25 mg PO Q48H [facility] Last Admin: 08/10/19 10:01 Dose: 25 mg Dextrose/Sodium Chloride (Dextrose 5%-Normal Saline) 1,000 mls @ 125 mls/hr IV ASDIRECTED [facility] Last Admin: 08/08/19 14:01 Dose: 125 mls/hr Latanoprost (Xalatan 0.005% Ophth Soln) 0 ml EYEBOTH BEDTIME [facility] Last Admin: 08/10/19 20:38 Dose: 1 drop Lisinopril (Prinivil) 20 mg PO DAILY [facility] Last Admin: 08/09/19 09:39 Dose: 20 mg Lisinopril (Prinivil) 40 mg PO DAILY [facility] Lisinopril (Prinivil) 20 mg PO ONETIME ONE Stop: 08/09/19 11:16 Last Admin: 08/09/19 11:35 Dose: 20 mg Lisinopril (Prinivil) 40 mg PO DAILY [facility] Last Admin: 08/11/19 14:02 Dose: Not Given Metoprolol Succinate (Toprol Xl) 50 mg PO BID [facility] Last Admin: 08/11/19 14:02 Dose: Not Given Nifedipine (Procardia Xl) 60 mg PO DAILY [facility] Last Admin: 08/11/19 14:02 Dose: Not Given Nifedipine (Procardia Xl) 30 mg PO Q24H [facility] Last Admin: 08/11/19 20:57 Dose: 30 mg Rivaroxaban (Xarelto) 15 mg PO WITHDINNER [facility] Last Admin: 08/10/19 16:32 Dose: 15 mg Simvastatin (Zocor) 20 mg PO BEDTIME [facility] Last Admin: 08/10/19 20:38 Dose: 20 mg Sodium Chloride (Saline Flush) 10 ml FLUSH ASDIRECTED PRN PRN Reason: Keep Vein Open Last Admin: 08/07/19 13:42 Dose: 10 ml - Exam General: Reports: Cooperative, Mild Distress HEENT: Reports: Pupils Equal, Pupils Reactive, EOMI, Mucous Membr. Moist/Road Runner Neck: Reports: Supple Lungs: Reports: Clear to Auscultation, Normal Respiratory Effort Cardiovascular: Reports: Regular Rate, Regular Rhythm GI/Abdominal Exam: Normal Bowel Sounds, Soft, Non-Tender, No Organomegaly, No Distention, No Abnormal Bruit, No Mass, Pelvis Stable Extremities: Other (At time. He was unable to move his right arm and leg. Then it was clear. It seemed to be worse when the blood pressure would come down.) Skin: Reports: Warm Psy/Mental Status: Reports: Other (lethargic.)
== END 2019-08-13 13:23 | disposition home or self-care (01) | DRG 65 ==
LOC: JP.ED 13:11 → JP.MS 14:56
PROVIDERS: ADMIT Internal Medicine; ATTEND Internal Medicine
DX: I63.9 Cerebral infarction, unspecified (principal); G81.91 Hemiplegia, unspecified affecting right dominant side; H54.7 Unspecified visual loss; F03.90 Unspecified dementia, unspecified severity, without behavioral disturbance, psychotic disturbance, mood disturbance, and anxiety; N18.9 Chronic kidney disease, unspecified; Z86.73 Personal history of transient ischemic attack (TIA), and cerebral infarction without residual deficits; I12.9 Hypertensive chronic kidney disease with stage 1 through stage 4 chronic kidney disease, or unspecified chronic kidney disease; E78.5 Hyperlipidemia, unspecified; R47.01 Aphasia; Z66 Do not resuscitate; R41.3 Other amnesia; R47.02 Dysphasia; Z79.899 Other long term (current) drug therapy; Z98.890 Other specified postprocedural states; Z86.010 Personal history of colon polyps
CPT/HCPCS: 36415; 70450; 70450-26; 80048; 80053; 81001; 84484; 85025; 85027; 97110-GO; 97110-GP; 97112-GP; 97163-GP; 97165-GO; 97530-GO; 97530-GP; 99283; 99285; A9270-GY